=== PATIENT | female | born 1960 | race Caucasian/White ===

== ENCOUNTER 2020-10-29 12:13 | Emergency (ER) | payer OTHER ==
[2020-10-29 12:41] LABS: BASOPHIL 0.3 % (0-2); EOSINOPHIL 1.4 % (0-5); HGB 14.6 g/dl (12.5-16.0); LYMPHOCYTE 21.7 % (15-48); MCH 28.6 pg (25.0-31.0); MCHC 32.4 g/dL (32.0-36.0); MCV 88.2 fL (78.0-100.0); MPV 10.5 fL (6.0-9.5); NRBC 0; PLT 269 K/uL (150-400); RDW 15.2 % (11.5-14.0); WBC 8.7 K/uL (4.0-10.5)
[2020-10-29 12:48] LABS: INR 1.18 (0.9-1.2); PROTHROMBIN TIME 14.2 SECONDS (11.4-13.6); PTT 25.6 SECONDS (22.2-34.7)
[2020-10-29 12:57] LABS: POTASSIUM 4.2 mmol/L (3.5-5.1)
[2020-10-29 13:25] LABS: ALBUMIN 3.6 g/dL (3.4-5.0); BILIRUBIN - TOTAL 0.7 mg/dL (0.2-1.0); BUN/CREAT RATIO (CALC) 17.7 RATIO; CREATININE 0.62 mg/dL (0.51-0.95); GLOBULIN (CALCULATION) 3.4 g/dL
== END 2020-10-29 15:40 | disposition home or self-care (01) ==
LOC: FER 12:13
PROVIDERS: Emergency Medicine
DX: R07.89 Other chest pain (principal); R00.0 Tachycardia, unspecified; R11.0 Nausea; I10 Essential (primary) hypertension; Z85.3 Personal history of malignant neoplasm of breast; Z90.10 Acquired absence of unspecified breast and nipple; Z88.1 Allergy status to other antibiotic agents; Z88.0 Allergy status to penicillin; Z88.5 Allergy status to narcotic agent; Z91.013 Allergy to seafood
CPT/HCPCS: 36415; 71045; 80053; 83690; 84484; 85025; 85610; 85730; 93005; J1885; J2405

== ENCOUNTER 2020-12-17 19:07 | Emergency (ER) | payer OTHER ==
[2020-12-17 20:35] LABS: BASOPHIL 0.2 % (0-2); EOSINOPHIL 0.2 % (0-5); HCT 42.4 % (37.0-47.0); HGB 14.3 g/dl (12.5-16.0); MCH 28.6 pg (25.0-31.0); MCHC 33.7 g/dL (32.0-36.0); MCV 84.8 fL (78.0-100.0); MPV 11.5 fL (6.0-9.5); NEUTROPHIL 86.1 % (41-80); NRBC 0; PLT 278 K/uL (150-400); RDW 15.4 % (11.5-14.0)
[2020-12-17 20:39] LABS: INR 1.32 (0.9-1.2); PROTHROMBIN TIME 15.6 SECONDS (11.4-13.6); PTT 26.8 SECONDS (22.2-34.7)
[2020-12-17 20:49] LABS: ALBUMIN 3.5 g/dL (3.4-5.0); BILIRUBIN - TOTAL 6.4 mg/dL (0.2-1.0); BUN/CREAT RATIO (CALC) 14.1 RATIO; CREATININE 0.64 mg/dL (0.51-0.95); GLOBULIN (CALCULATION) 3.7 g/dL; MAGNESIUM 1.9 mg/dL (1.8-2.4); POTASSIUM 3.9 mmol/L (3.5-5.1); TOTAL PROTEIN 7.2 g/dL (6.4-8.2)
[2020-12-17 20:58] LABS: LACTIC ACID 1.7 mmol/L (0.4-1.9)
[2020-12-17 21:05] LABS: IRON % SATURATION 12.4 %SAT (20-50)
[2020-12-17 22:21] LABS: BILIRUBIN 2+ mg/dL (NEGATIVE); BLOOD TRACE-LYSED Ery/uL (NEGATIVE); CLARITY CLEAR (CLEAR); COLOR YELLOW (YELLOW); GLUCOSE (U) NORMAL (NORMAL); LEUKOCYTES 1+ Leu/uL (NEGATIVE); NITRITE NEGATIVE (NEGATIVE); PROTEIN NEGATIVE (NEGATIVE); SPECIFIC GRAVITY <=1.005 (1.001-1.030)
[2020-12-17 22:27] LABS: BACTERIA TRACE; SQUAMOUS EPITHELIAL CELLS RARE; URINARY RBC RARE
== END 2020-12-18 01:46 | disposition other institution (70) ==
LOC: FER 19:07
PROVIDERS: Emergency Medicine
DX: K80.50 Calculus of bile duct without cholangitis or cholecystitis without obstruction (principal); Z88.0 Allergy status to penicillin; Z88.1 Allergy status to other antibiotic agents; Z88.5 Allergy status to narcotic agent; Z91.013 Allergy to seafood; Z20.822 Contact with and (suspected) exposure to COVID-19
CPT/HCPCS: 36415; 71260; 80053; 81001; 83540; 83550; 83605; 83690; 83735; 84145; 84484; 85025; 85610; 85730; 87040; 93005; J1170; J1956; J2405; J7030; Q9967; U0002